=== PATIENT | male | born 1995 | race Caucasian/White ===

== ENCOUNTER → 2016-10-18 | Outpatient (CLI) | payer BC ==
--- NOTE | 2016-10-18 14:57 | RADRPT ---
PROCEDURE: Bilateral knee x-ray CLINICAL INDICATION: PAIN TECHNIQUE: AP weightbearing, PA weightbearing flexion, lateral and patellar views were obtained of the right and left knees. COMPARISON: None FINDINGS: There is no evidence of acute fractures or dislocations. No evidence patellar subluxations. The [place] mineralization is normal. No focal bony blastic or lytic lesions. There is no evidence of right or left knee joint effusions. Soft tissues are unremarkable. IMPRESSION: 1. No evidence of acute fractures, dislocations, patellar subluxations or joint effusions of the ri ght or left knees. RPTAT:AAJJ Physician Nellie Date Time Electronically viewed and signed by Barbara Robertson Physician on 10/18/2016 14:56 /
== END | disposition home or self-care (01) ==
LOC: HKI 16:33
PROVIDERS: ATTEND Orthopaedic Surgery
DX: M25.561 Pain in right knee (principal); M25.562 Pain in left knee; M22.42 Chondromalacia patellae, left knee; M22.41 Chondromalacia patellae, right knee
CPT/HCPCS: 73564; G0463